=== PATIENT | female | born 1980 | race Caucasian/White ===

== ENCOUNTER 2025-03-19 12:51 | Outpatient (AMB) | payer OTHER, SELFPAY ==
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
[2025-03-19 12:59] VITALS: BP 99/58; PULSE 88; BMI 24.5
--- OUTSIDE RECORDS SUMMARY | 2025-03-19 13:33 | XMS_ITS | Patient Health Record ---
Author Organization [facility] Address [address] [place] [address] Care Team Providers Care Industrial Safety And Health Manager Name Role Phone WILTON LÓPEZ MD Primary Care Provider Cathy Chiang Unavailable [phone] RICKY PATEL Unavailable Unavailable Allergies Allergen (clinical drug ingredient) Drug/Non Drug Allergy documented on EMR Reaction Allergy Type Onset Date Status gabapentin Gabapentin Unknown Drug Allergy Activ e pregabalin Lyrica Unknown Drug Allergy Active Reason For Referral No Information Medications Medication SIG (Take, Route, Fr equency, Duration) Notes Start Date End Date Status DULoxetine HCl 60 MG 2 DAILY Active Topamax 50 MG 1 tablet Orally TWICE A DAY Active Zofran 4 MG 1 tablet every 8h as needed for nausea and vomiting Orally; Duration: 30 day(s) 12/10/2019 Acti ve Fioricet 50-300-40 MG 1 capsule as neede d Orally every 4 hrs; Duration: 30 days 01/24/2020 A ctive Maxalt-CULIN[employer] SPECIALIST 10 10 MG 1 as needed for migr roe, may repeat after 2h - max dose 2/24 hrs Orally as directed; Duration: 30 day(s) 12/10/2019 Active Topamax 100 MG 1 tablet Orally twic e a day; Duration: 30 day(s) 12/10/2019 Active Problems Problem Type SNOMED Code ICD Code Onset Dates Problem Status W/U Status Risk Notes Problem Chronic migraine without aura, non-intractable ([id number]) Chronic migraine without aura, not intractable, without status migrainosus (G43.709) Active confirmed Problem Transient alteration of awareness ([id number]) Transient alteration of awareness (R40.4) Active confirmed Plan Of Treatment No Information Insurance Providers Payer Name Payer Address Payer Phone Subscriber Number Group Number Insured Name Patient Relationship to Insured Coverage Start Date Coverage End Date [facility] [employer] [facility] [address] [place] [phone] [id number] LOREN GUERRA Self - patient is the insured Medical (General) History Medical History History ICD Code migraines depression PTSD Surgical History Surgery Date(Month/Year) hysterectomy
== END 2025-03-19 13:29 | disposition home or self-care (01) ==
PROVIDERS: Visit Provider Nurse Practitioner Family
DX: G89.4 Chronic pain syndrome (principal); M54.9 Dorsalgia, unspecified; G89.29 Other chronic pain; M54.59 Other low back pain; M54.17 Radiculopathy, lumbosacral region; M79.7 Fibromyalgia
CPT/HCPCS: 99204

== ENCOUNTER → 2025-03-19 12:51 | Outpatient (BNVA) | payer OTHER, SELFPAY | PROVIDERS: Visit Provider Nurse Practitioner Family | DX: G89.4 Chronic pain syndrome (principal); M54.9 Dorsalgia, unspecified; M54.59 Other low back pain; G89.29 Other chronic pain; M54.17 Radiculopathy, lumbosacral region; M79.7 Fibromyalgia | CPT/HCPCS: 99202 ==